=== PATIENT | female | born 1960 | race Caucasian/White ===

== ENCOUNTER 2024-09-05 15:41 | Emergency (ER) | payer BC, SELFPAY ==
--- NOTE | ~2024-09-05 | XR_ITS ---
HISTORY: LT foot pain/swelling/tenderness after a fall 2x weeks ago COMPARISON: None TECHNIQUE: 3 views of the left foot were performed FINDINGS: No acute fracture or dislocation is appreciated. Significant degenerative disease is noted. The base of the fifth metatarsal is intact. Postoperative change is suspected at the base of the first metatarsal. Small calcaneal spur is noted. No significant soft tissue swelling is present. IMPRESSION: Significant degenerative disease, without acute fracture. Reviewed, dictated and finalized at location A.
--- NOTE | ~2024-09-05 | XR_ITS ---
EXAM: XR tibia fibula LT 2V, XR ankle LT min 3V DATE: 09/05/2024 16:28 (accession [id number]), 09/05/2024 16:29 (accession [id number]) HISTORY: LT lower leg pain/swelling/redness 2 weeks after fall . COMPARISON: None available. FINDINGS: Osteopenia. Severe degenerative change in the knee. Moderate degenerative change in the mi dfoot and ankle. No fracture or dislocation. No lytic or blastic lesion. Pes planus. Achilles and sofia ntar enthesopathy. IMPRESSION: No acute osseous finding in the left tibia/fibula or left ankle. Reviewed, dictated and finalized at location K. IMPRESSION: No acute osseous finding in the left tibia/fibula or left ankle.
--- OUTSIDE RECORDS SUMMARY | 2024-09-05 15:48 | XMS_ITS | Data Portability ---
Author Organization OTILIO [facility] - LEONOR [facility] Address [address] [place] [address] Care Team Providers Care Sql Developer Name Role Phone OSMAN CUMMINS Referring Provider PEACE SCHMIDT Primary Care Provider Assessment Encounter Date Assessment Date Assessment LastModified by Organization Details LastModified Time 12/01/2019 12/01/2019 ASSESSMENT: 1. A 59-year-old female with chronic shortness of breath with possibly class II to class III diastolic heart failure. 2. Mitral regurgitation. Appears to be minimal. 3. Morbid obesity. 4. Kyphoscoliosis. PLAN/RECOMMENDATI ONS: I discussed the test results with the patient. Due to valve reasonably well seen, I do not think WYATT would add much to the evaluation. Based on the 2-D echocardiogram, I do not recommend any further intervention for mitral valve. We will probably follow with an echocardiogram in a year, or if her symptoms significantly worsen, we may obtain a WYATT to better assess the mitral valve. Most of her symptoms are probably related to morbid obesity and kyphoscoliosis. She is interested in losing weight, but due to her joint pains and chest pain, apparently, she has not been able to exercise much. After a lengthy discussion about the problems, we agreed that no WYATT is necessary at this point and she will go back to seeing Dr. Cummins, and we will see her back if there is significant worsening of symptoms after WYATT. I spent about 35 minutes face to face out of nearly 50 minutes of consultation time. [email or web address] Not available 12/01/2019 19:15:28 01/11/2020 01/11/2020 Echocardiogram 11/16/2019 from [facility]: LV cavity size is normal, wall thickness normal, systolic function normal with ejection fraction 60%. Diastolic function parameters are normal. LV size and systolic function normal, systolic pressure mildly increased. RVSP 46 mmHg. Right and left atria normal size. CXR PA and lateral 12/13/2019 from [place]: Severe S-shaped scoliosis of the thoracolumbar spine. Cardiac silhouette similar. Bilateral basilar atelectasis. No focal airspace opacity. No pleural effusion. Overall no acute findings seen. (I personally reviewed this image on PACS.) PFTs performed in office 01/11/2020: Spirometry shows no obstruction based on FEV1/FVC ratio. FEV1 is 1.63 L or 76% predicted and FVC is 74%. TLC shows moderate restriction at 60%, RV is 32%, DLCO 80%. [email or web address] Not available 01/11/2020 10:35:11 Plan of Treatment Reminders Order Date Submit Date Provider Last Modified By Organization Details Last Modified Time Details Appointments None recorded. Lab None recorded. Referral None recorded. Procedures trans-thor acic echocardio gram (TTE) (PROC) 2020 021 [email or web address] [facility], [address], [facility] [address], [place], [address], 1 12:21:51 Surgeries None recorded. Imaging electrocar diogram 2020 021 [facility] In-Office Orders (For Internal Use Only), [address] , [place], [address], 12:07:31 Medication Orders None recorded. Patient TargetsNo targets recorded. Patient Instructions Encounter Date Encounter Id Patient Instructions Last Modified By Organization Details Last Modified Time 12/01/2019 [id number] When You Want to Lose Weight: Care Instructions [email or web address] Not available 12/02/2019 06:10:20 heart valve disease: care instructions cramaiah Not available 12/02/2019 06:10:20 mitral valve regurgitation: care instructions [email or web address] Not available 12/02/2019 06:10:20 Reason for Referral None Reported. Results Created Date Observation Date Name Description Value Unit Range Abnormal Flag Note LastModifiedBy Organization Detail LastModifiedTime 11/17/19 20 11/16/2019 brook YARBROUGH ardio gram No observ ation record ed. savannah [facility] In-Office Orders (For Internal Use Only) [address], [place], [address], 11/17/2019 09:34:08 12/13/19 20 12/13/2019 XR, chest , 2 view PROCED URE: PA AND LATERA L CHEST TECHNI QUE: PA and latera l chest radiog raphs were obtain ed. CPT 34475 HISTOR Y: . R06.09 Other forms of dyspne a COMPAR ISONS: None. FINDIN GS: Severe S-shap ed scolio sis of the thorac olumba r spine. Cardio medias tinal silhou ette is simila r. Bibasi lar atelec tasis. No focal airspa ce opacit y. No pleura l effusi on or pneumo thorax . IMPRES LORE: No acute cardio pulmon miguel findin gs. ws:PSM [id number] Electr onical ly Signed By Steve Weber on 2019-03 013 17:00 CTZ Referr ing emanuel ers may call my direct line [phone] [email or web address] [facility] [place] [address], [place], [address], 12/14/2019 12:03:46 01/11/20 20 01/11/2020 pulmo nary funct ion test* No observ ation record ed. BARCODE Not Available 2019 17:14:52 04/24/19 21 04/24/2020 elect jhonny connell am No observ ation record ed. savannah Fede In-Office Orders (For Internal Use Only) [address], [place], [address], 04/24/2020 13:09:38 12/11/19 21 12/10/2020 brook YARBROUGHdio gram No observ ation record ed. [facility]) [address] [facility], [place], [address], 12/10/2020 15:35:32 Result Notes Documentation Provider Name and Address Organization Details Recorded Time Xr, Chest, 2 View : PROCEDURE: PA AND LATERAL CHEST TECHNIQUE: PA and lateral chest radiographs were obtained. CPT 35904 HISTORY: . R06.09 Other forms of dyspnea COMPARISONS: None. FINDINGS: Severe S-shaped scoliosis of the thoracolumbar spine. Cardiomediastinal silhouette is similar. Bibasilar atelectasis. No focal airspace opacity. No pleural effusion or pneumothorax. IMPRESSION: No acute cardiopulmonary findings. [id number] Electronically Signed By Steve Weber on 2019-12-13 17:00 CTZ Referring providers may call my direct line Fay Holbrook kasey, [place] [facility] 12/14/2019 12:03:46 Problems Name Problem SNOMED Code Status Onset Date Resolution Date Notes Provider Name and Address Organization Details Recorded Time Scoliosis deformity of spine 865101909 Active 2019 Elsi Pierson null, [place] [facility] [place] 0 14:50:14 Arthritis 8528423 Active 2019 Elsi Pierson null, [place] [facility] [place] 0 14:50:20 Dyspnea on exertion 44980341 Active 2019 Carlos Hartley MD [address] [place] [address], [place], [address], [place] [facility] 0 10:12:31 Obesity 408082128 Active 2019 Carlos Hartley MD [address] [place] [address], [place], [address], [place] [facility] 0 10:13:11 Pulmonary hypertension 36122112 Active 2019 Carlos Hartley MD [address] [place] [address], [place], [address], [place] [facility] 0 10:17:28 Gastroesophage al reflux disease without esophagitis 240185429 Active 2019 Carlos Hartley MD [address] [place] [address], [place], [address], [place] [facility] 0 10:21:45 Problem Notes None recorded. Procedures Surgical History Date Name Laterality Status Provider Name and Address Organization Details Recorded Time 01/11/20 20 PFT completed Luna Holt [facility] 01/11/2020 10:04:03 12/01/19 20 Blank completed Karo Lopez [facility] 12/01/2019 19:14:52 06/01/19 10 Gallbladder Surgery completed Not Available [facility] 03/03/2019 14:19:10 07/31/18 85 Section completed Not Available [facility] 03/03/2019 14:19:10 excision of bunion completed Torsten Jay [facility] 03/03/2019 14:42:13 ultrasonography guided transcervical radiofrequency ablation of uterine fibroid completed Torstendorothy Thompson [facility] 03/03/2019 14:42:40 Imaging Results None recorded. Procedure Notes None recorded. Medical Equipment None Reported. Allergies Allergen ID Allergen Name Allergen Category Reaction Reaction Severity Criticality Documentation Date Start Date Code Code System Note Provider Name and Address Organization Details Recorded Time 374543 tetracycl ine medicatio n Not available Not available Not available 03/03/2019 29994 RxNorm Torsten Jay null, [facility] 0 14:34:50 064176 doxycycli ne Not available Not available Not available Not available 03/03/2019 3640 RxNorm Torsten Jay null, [facility] 0 14:34:56 579684 Dilaudid medicatio n Not available Not available Not available 03/03/2019 69518 3 RxNorm Torsten Jay null, [facility] 0 14:35:27 197318 tramadol medicatio n Not available Not available Not available 03/03/2019 19786 RxNorm Torsten Jay null, [facility] 0 14:35:45 Medications Name Sig Start Date Stop Date Status Note LastModified by Organization Details LastModified Time celecoxib 200 mg capsule TAKE ONE CAPSULE BY MOUTH TWICE A DAY WITH FOOD active Not Available Not Available No t Available cyclobenza rex 10 mg tablet TAKE ONE TABLET BY MOUTH AT BEDTIME NEEDED active Not Available Not Available No t Available silver sulfadiazi ne 1 % topical cream APPLY TO GROIN FOLDS TWO TIMES A DAY NEEDED active Not Available Not Available No t Available promethazi ne-DM 6.25 mg-15 mg/5 mL oral syrup TAKE 5 ML BY MOUTH EVERY SIX HOURS NEEDED FOR COUGH FOR UP TO 5 DAYS 04/24 completed Not Available Not Available Not Available prednisone 10 mg tablet 01/10 completed Not Available Not Available Not Available azithromyc in 250 mg tablet 01/10 completed Not Available Not Available Not Available fluconazol e 150 mg tablet TAKE ONE TABLET BY MOUTH ONE TIME DAILY FOR 10 DAYS 12/10 completed Not Available Not Available Not Available hydrocodon e 10 mg-acetami nophen 325 mg tablet TAKE ONE TABLET BY MOUTH EVERY 6 HOURS NEEDED FOR 3 DAYS active Not Available Not Available No t Available butalbital -acetamino phen-caffe ine 50 mg-325 mg-40 mg tablet TAKE ONE TABLET BY MOUTH EVERY 6 HOURS NEEDED FOR HEADACHE active Not Available Not Available No t Available Celebrex 100 mg capsule Take 1 capsule every day by oral route. 11/01 completed 1-2 tab as needed Not Available Not Available Not Available lorazepam 0.5 mg tablet TAKE ONE TABLET BY MOUTH TWICE A DAY NEEDED FOR ANXIETY active Not Available Not Available No t Available benzonatat e 100 mg capsule 01/10 completed Not Available Not Available Not Available cephalexin 500 mg capsule TAKE ONE CAPSULE BY MOUTH EVERY 6 HOURS FOR 10 DAYS 12/10 completed Not Available Not Available Not Available montelukas t 10 mg tablet Take 1 tablet every day by oral route as needed. active Not Available Not Available No t Available furosemide 20 mg tablet TAKE ONE TABLET BY MOUTH ONE TIME DAILY NEEDED active Not Available Not Available No t Available gabapentin 100 mg capsule 01/10 completed Not Available Not Available Not Available methylpred nisolone 4 mg tablets in a dose pack FOLLOW DIRECTIO NS ON PACKAGE 12/10 completed Not Available Not Available Not Available [place] 5 mg-325 mg tablet Take 1 tablet every 6 hours by oral route. 12/10 completed Not Available Not Available Not Available cefdinir 300 mg capsule 01/10 completed Not Available Not Available Not Available amoxicilli n 875 mg-potassi um clavulanat e 125 mg tablet TAKE ONE TABLET BY MOUTH EVERY 12 HOURS FOR 10 DAYS 12/10 completed Not Available Not Available Not Available escitalopr am 10 mg tablet TAKE ONE TABLET BY MOUTH ONE TIME DAILY 04/24 completed Not Available Not Available Not Available bupropion HCl XL 150 mg 24 hr tablet, extended release TAKE ONE TABLET BY MOUTH EVERY MORNING 01/10 completed Not Available Not Available Not Available montelukas t 11/01 completed Not Available Not Available Not Available Tylenol 01/10 completed Not Available Not Available Not Available Tessalon Perles 11/01 completed Not Available Not Available Not Available Contrave 8 mg-90 mg tablet,ext ended release TAKE TWO TABLETS BY MOUTH TWICE A DAY 12/10 completed Not Available Not Available Not Available albuterol sulfate 90 mcg/actuat ion breath activated powder inhaler Inhale 2 puffs every 4 hours by inhalati on route. 12/10 completed Not Available Not Available Not Available butalbital 25 mg-acetami nophen 325 mg tablet Take 2 tablets every 4 hours by oral route. 01/10 completed Not Available Not Available Not Available Flucelvax Quad (PF) 60 mcg (15 mcg x 4)/0.5 mL IM syringe INJECT 0.5ML INTRAMUS CULARLY ONCE 01/10 completed Not Available Not Available Not Available Vitals Date Recorded Body height Body mass index (BMI) Body weight Heart rate Systolic And Diastolic Provider Name and Address Organization Details Last Updated DateTime 04/24/2020 152.4 cm 47.1 kg/m2 179414.7 6 g 68 /min 122/70 mm[Hg] Meghann Georges [facility] 04/24/2020 11:38:19 Date Recorded Body height Body mass index (BMI) Body weight Heart rate Systolic And Diastolic Provider Name and Address Organization Details Last Updated DateTime 11/16/2019 149.86 cm 46.9 kg/m2 961465.4 3 g 70 /min 140/80 mm[Hg] Meghann Georges [facility] 11/16/2019 15:49:00 Date Recorded Heart rate Body weight Systolic And Diastolic Provider Name and Address Organization Details Last Updated DateTime 12/01/2019 68 /min 570798.84 g 125/81 mm[Hg] Antonia Fernando [facility] 12/01/2019 14:35:57 Date Recorded Body height Body mass index (BMI) Provider Name and Address Organization Details Last Updated DateTime 12/01/2019 152.4 cm 45.1 kg/m2 Karo Lopez [facility] 12/01/2019 18:43:51 Date Recorded Body height Body mass index (BMI) Body weight Heart rate Systolic And Diastolic Provider Name and Address Organization Details Last Updated DateTime 12/10/2020 152.4 cm 46.3 kg/m2 789801.7 5 g 72 /min 122/78 mm[Hg] Astrid Kelly [facility] 12/10/2020 11:50:33 Date Recorded Body height Body mass index (BMI) Body weight Heart rate Oxygen saturation Oxygen saturation in Arterial blood by Pulse oximetry Systolic And Diastolic Provider Name and Address Organization Details Last Updated DateTime 0 152.4 cm 44.7 kg/m2 813487. 65 g 78 /min 98 % 98 % 126/76 mm[Hg] Luna Jonathon [facility] 0 10:03:52 Social History Question Answer Notes LastModified by Organizat ion Details LastModified Time Tobacco Smoking Status Former Smoker Not Available Phrkyung - Zoey 03/03/2019 14:19:10 Do You Have An Advance Directive? No [email or web address] Information not available 03/03/2019 What Is Your Level Of Caffeine Consumption? Moderate 1-2 Sodas Daily [email or web address] Information not available 03/03/2019 What Type Of Diet Are You Following? REGULAR Emphasis On Vegetables Information not available 03/03/2019 Which Illicit Or Recreational Drugs Have You Used? None [email or web address] Information not available 03/03/2019 When Did You Quit Smoking? 6-10yearssinc elastcigarett e 2010 Information not available 01/11/2020 Live Alone Or With Others? Alone [email or web address] Information not available 03/03/2019 Tobacco Status Former User Informati on not available 01/11/2020 Forms Of Tobacco Cigarettes Information not available 01/11/2020 Have You Had A Fever And/or Symptoms Of A Lower Respiratory Illness (cough, Difficulty Breathing, Etc)? No [email or web address] Information not available 11/02/2019 Marital Status Single [email or web address] Informatio n not available 03/03/2019 How Many Children Do You Have? 2 [email or web address] Information not available 03/03/2019 Seat Belts Used Routinely Yes [email or web address] Information not available 03/03/2019 Do You Have Smoke And Carbon Monoxide Detectors In Your Home? Yes [email or web address] Information not available 03/03/2019 Are You Passively Exposed To Smoke? Yes [email or web address] Information not available 03/03/2019 How Much Tobacco Do You Smoke? 1 PPW [email or web address] Information not available 03/03/2019 General Stress Level High [email or web address] Information not available 03/03/2019 Sex: Unknown Functional Status Question Answer Note LastModified by [employer] ion Details LastModified Time What is your level of alcohol consumption? Occasional [email or web address] Information not available 03/03/2019 What is your exercise level? Occasional [email or web address] Information not available 03/03/2019 Mental Status None recorded. Family History Relationship Description Onset Age of this Age Resolved Age Notes LastModified by Organization Details LastModified Time Maternal Grandmother Heart disease [email or web address] Not available 2019 14:19:10 Maternal Grandmother Family history of malignant neoplasm [email or web address] Not available 2019 14:19:10 Mother Heart disease [email or web address] Not available 2019 14:19:10 Brother Family history of malignant neoplasm [email or web address] Not available 2019 14:19:10 Maternal Aunt Fibrosis of lung Not available 2019 09:22:04 Notes:No history of prematur e coronary artery disease. Medical History Condition Response hypothyroidism N cancer N sleep apnea N back problems Y asthma N COPD N depression Y high blood pressure N obesity Y heart murmur Y acid reflux/GERD Y anxiety disorder Y blood clots N diabetes mellitus N high cholesterol N heart problems Y Gynecological HistoryNo gynecological history recorded. Obstetrics History GPAL:G 0 P 0 0 0 0 Past Encounters Encounter ID Performer Location Encounter Start Date Encounter Closed Date Diagnosis/Indication Diagnosis SNOMED-CT Code Diagnosis ICD10 Code Diagnosis Note [id number] Osman Cummins Jr, MD [facility] [address] [facility] [place] [address] 03/03/2019 14:18:34 03/03/2019 15:05:55 Precordial pain 96157408 R07.2 Nonexertio nal. Occurred after a meal on Thursday. No exertional chest pain since. Resting EKG is normal. His factor profile is essentiall y benign. Will get CT coronary calcium score to assist with prognosis. Further recommenda tions will depend upon those findings Obesity 731012944 E66.9 Patient is going to attend a seminar to assist with weight loss instructio n Scoliosis deformity of spine 898219173 M41.9 [id number] Osman Cummins Jr, MD [place] [id number] [facility] [address] [place] [address] 11/02/2019 14:35:58 11/02/2019 15:31:41 Scoliosis deformity of spine 602117216 M41.9 Arthritis 9584968 M19.90 Edema of l ower extremity 027988030 R60.0 This does not appear to be too severe but will prescribe Lasix 20 mg daily for a couple of days and monitor response. Obesity 906302669 E66.9 Patient is going to attend a seminar to assist with weight loss instructio n Systolic murmur 83737030 R01.1 The patient has a soft systolic heart murmur and has increasing dyspnea with lower extremity edema. Echo Doppler [id number] Osman Cummins Jr, MD [facility] [address] [place] [address] 11/16/2019 15:42:21 11/16/2019 16:28:38 Arthritis 4718527 M19.90 Scoliosis deformity of spine 123738313 M41.9 Reportedly severe. Patient can only sleep on her right side due to discomfort in other positions. Patient is also noted increasing dyspnea of late Tricuspid valve regurgitation 671552264 I07.1 Moderate tricuspid regurgitat ion Mitral day ve regurgitation 95245198 I34.0 Moderate in appearance . Multiple jets. PA pressures were mildly elevated. Patient is having increasing dyspnea and is hard to know how much of any of this might be attributab le to the restrictiv e lung disease to her to her scoliosis. Since the patient also has tricuspid regurgitat ion I will refer her to the [facility] for early follow-up Pulmonary hypertension 98964880 I27.20 Echo Doppler suggests PA pressure of 47 mmHg. [id number] Chino Pathak MD [facility] [address] [place] [address] 12/01/2019 10:14:23 12/02/2019 09:04:26 Chronic diastolic heart failure 946083271 I50.32 [place] [facility] [employer] Classification - Class II 319728092 I50.9 Dyspnea on exertion 6084 5006 R06.09 Mitral day ve regurgitation 81854487 I34.0 Morbid obesity 338691204 E66.01 Scoliosis deformity of spine 391558586 M41.9 [id number] Carlos Hartley MD [facility] [address] [place] [address] 01/11/2020 09:09:21 01/11/2020 11:12:42 Scoliosis deformity of spine 953145944 M41.9 This is the source of her extrapulmo nary restrictiv e defect. There is no evidence of diffuse interstiti al lung disease. Obesity 637739185 E66.9 BMI 44 consistent with morbid obesity. Likely a major contributi ng factor to her dyspnea. Dyspnea on exertion 6084 5006 R06.09 This is most likely related to a combinatio n of restrictiv e lung disease from her severe scoliosis, significan t obesity with deconditio rory, and possibly cardiac abnormalit ies including mitral regurgitat ion and suspected diastolic dysfunctio n. PFT showed no obstructio n and no impairment in gas exchange, therefore COPD is unlikely. Pulmonary hypertension 46133944 I27.20 Based on echo as above. Likely d/t morbid obesity and RLD from scoliosis. Gastroesop hageal reflux disease without esophagitis 109074282 K21.9 Likely source of overnight cough. Recom OTC PPI. [id number] Osman Cummins Jr, MD [facility] [address] [place] [address] 04/24/2020 11:16:07 04/24/2020 12:20:40 Dyspnea on exertion 87128275 R06.09 Gastroesop hageal reflux disease without esophagitis 076726774 K21.9 Pulmonary hypertension 55905994 I27.20 Echo Doppler suggests PA pressure of 47 mmHg. Scoliosis deformity of spine 983721226 M41.9 Reportedly severe. Patient can only sleep on her right side due to discomfort in other positions. Patient is also noted increasing dyspnea of late Tricuspid valve regurgitation 487461047 I07.1 Moderate tricuspid regurgitat ion. No orthopnea or PND. Will arrange for echo Doppler before next visit in 1 year Morbid obesity 467451323 E66.01 Restrictiv e lung disease 68301117 J98.4 Pulmonary function studies confirm restrictiv e lung disease of at least moderate severity. The patient is compromise d in terms of her functional capacity. 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 [id number] Osman Cummins Jr, MD [facility] [address] [facility] [address] [place] [address] 12/10/2020 11:26:26 12/10/2020 12:50:34 Pulmonary hypertension 70680293 I27.20 Echo Doppler today reveals vigorous LV systolic function. RV systolic function is normal. There is no valve pathology. Obesity 879445316 E66.9 Encouraged weight loss once again if she has failed to lose any weight. Due to her orthopedic issues she is not very active Scoliosis deformity of spine 011206279 M41.9 Reportedly severe. Patient can only sleep on her right side due to discomfort in other positions. Patient is also noted increasing dyspnea of late Migraine 35703966 G43.90 9 Chronic problem. Follow with Peace Schmidt and Dr. [facility] Concerns Section Related Observation LastModified by Organization Price moore LastModified Time None Recorded Concern Status LastModified by Organization Details LastModified Time None Recorded Advance Directives Directive N: Payers Insurance Date Sequence Insurance Name Policy Number Policy Street Covered Member ID Street Member ID Guarantor Name 03/18/2020 PAYMENT PLAN Sarah Carpio 04/02/2022 1 [facility] ([facility]) [id number] Sarah Carpio [id number] Sarah Carpio Notes Date Note Type Note Provider Name and Address Organization Details Recorded Time 11/16/2019 text/html Mrs. player edmonds rns the office. This is a lady with some unusual problems which include fairly severe scoliosis as well as arthritis. She states that her scoliosis is limiting and even affects how she is able to sleep at night. When I originally saw her she is having problems with increasing dyspnea with exertion. She also had an audible heart murmur on physical exam. Echo Doppler confirms vigorous LV systolic function with normal LV chamber dimensions. There is what appears to be moderate MR and moderate TR. PA systolic pressures of 47 mmHg. The patient has no orthopnea or PND. She has no history of cardiac arrhythmia. I am going to refer her to the [facility] for long-term follow-up Osman Cummins Jr, MD [address] [place] [address], [id number] 11/16/2019 16:26:10 12/01/2019 text/html The patient is a 59-year-old female with a longstanding history of exertional shortness of breath, morbid obesity, history of kyphoscoliosis. The patient reports that she continues to gain weight and has started getting more and more short of breath. She went to see Dr. Cummins, who did an echocardiogram on 11/16/2019, along with a clinic visit. She was noted to have some mitral regurgitation; hence, she was sent to us for evaluation and followup of this. The patient reports that she gets short of breath even walking a short distance, which has been going on for many years, but now getting worse. She also has lower extremity swelling, which is improved with Lasix. She denies any orthopnea or paroxysmal nocturnal dyspnea; however, she can only sleep on the right side for a few hours and has to get up due to her severe kyphoscoliosis problems. This has been going on for many years. She also has some chest pain on the left side of the chest that comes and goes, not related to any exertion. She has had a calcium scoring CT scan, done in March of this year, that showed a total score of 0. Echocardiogram, done 11/16/2019, official report saw no mitral regurgitation. No aortic stenosis, normal LV function with ejection fraction of 65%. On personally reviewing the echocardiogram, by Dr. Cummins, apparently, he felt that there is at least mild MR. Chino Pathak MD [address] [place] [address] [address], [place], [address], [facility] 12/02/2019 06:10:24 01/11/2020 text/html DyspneaReported bypatient.Quality:dys pnea Severity:moderate Duration:sensation/ep isode lasts 3 minutes Onset/Timing:daily Context:with activity Alleviating Factors:rest Aggravating Factors:activity Associated Symptoms:no chest pain; no palpitations; no orthopnea; no PND; no fever; no chills; no wheezing; no sputum production; no hemoptysis; no weight gain; no dyspepsia Ms. Carpio was referred for pulmonary consultation on 01/10/2020 for evaluation of dyspnea on exertion. She is followed by cardiology and more recently by cardiac surgery for moderate MR. She also has pulmonary hypertension with PA systolic pressures of 47 mmHg. She also has scoliosis and there is some concern that restrictive lung disease may be contributing to her symptom of dyspnea. Dyspnea has been present for between 6 and 12 months. She also notes occasional wheezing and coughing with clear sputum. She is a former smoker but stopped in 2010. She reports a diagnosis of reflux but takes no medications for this. Reports awakening over night with SOB and coughing. Carlos Hartley MD [address] [place] [address] [address], [place], [address], [facility] 01/11/2020 10:35:44 04/24/2020 text/html Mrs. Devlin pres ents the office today. She has a history of morbid obesity as well as tricuspid regurgitation and mild pulmonary hypertension. She also has significant scoliosis and has had pulmonary function studies done 01/11/2020. This revealed normal DLCO with no obstructive disease but moderate restrictive disease. The patient is significantly compromised in terms of her functional capacity. Walking a short distance causes her to be breathless. She is very concerned about her ability to go back to work due to the distance required to walk to the office etc. She has no orthopnea or PND. She has no palpitations presyncope or syncope.CT calcium score in the past recently has been 0 Osman Cummins Jr, MD [address] [facility] [address], [place], [address], [facility] 04/24/2020 12:07:49 12/10/2020 text/html Mrs. Wooten has h ad a recent echo Doppler done today. This revealed vigorous LV systolic function. EF was in the range of 65%. There is no significant valve pathology.She has a history of obesity as well as anxiety disorder depression, diastolic heart failure, and moderate restrictive lung disease. She also suffers with chronic migraines.He has no symptoms of angina orthopnea or PND Osman Cummins Jr, MD [address] [facility] [address], [place], [address], [facility] 12/10/2020 12:11:58 OBGyn Episode No OBEpisode recorded.
--- OUTSIDE RECORDS SUMMARY | 2024-09-05 15:48 | XMS_ITS ---
Author Organization [facility] Billing Info Address [address] [place] [address] Care Team Providers Care Rehabilitation Services Aide Name Role Phone PEACE LOGAN Primary Care Provider ANDRZEJ King [phone] REASON FOR VISIT screening colonoscopy Problems No Known Problems Encounters Encounter Location Date Provider Diagnosis [id number] [address] [facility] [place] [address] [place] [address] [place] [address] 04/27/2024 ANDRZEJ JAMA Plan Of Treatment No Information Progress Notes * Sarah CARPIO MDOB: 9 (63 yo F)Acc No.[id number]:04/27/2024 Patient: Sarah PIERCE :1960 A ge:63 Y S ex:Female Address:[facility] [place] [address] * true * Date: Generated for Printi ng/Faxing/eTransmitting on: 0 09/05/2024 03:48 PM CDT
--- OUTSIDE RECORDS SUMMARY | 2024-09-05 15:48 | XMS_ITS | Encounter Summary ---
Author Organization [facility] Address [address] [place] [address] Care Team Providers Care Workforce Investment Act Career Manager Name Role Phone Fede Cyr MD Primary Care Provider Reason for Referral * Durable Medical Equipment (Routine) - Closed Specialty Diagnoses / Procedures Referred By Contac t Referred To Contact Diagnoses Primary osteoarthritis of left knee Primary osteoarthritis of right knee Procedures Walker standard Dima Martin DO [address] [place] [address] Phone: tel: fax: Referral ID Status Reason Start Date Expiration Date V isits Requested Visits Authorized [id number] Closed Required by Insurance 04/06/2018 05/11/2019 1 1 [employer] Encounter Details Date Type Department Care Team (Late st Contact Info) Description 04/06/2018 Orders Only [facility] [place] [address] [place] [address] Connie Abebe RN Primary osteoarthritis of left knee (Primary Dx); Primary osteoarthritis of right knee Social History Tobacco Use Types Packs/Day Years Used Date Smoking Tobacco: Former Cigarettes Q uit: 2010 Smokeless Tobacco: Never Comments Unknown Sex and Gender Information Value Date Recorded Sex Assigned at Not on file Legal Sex Female 11:01 PM CDT Gender Identity Not on file Sexual Orientation Not on file documented as of this encounter Plan of Treatment Upcoming Encounters Date Type Department Care Team (Late st Contact Info) Description 09/09/2024 2:20 PM CDT Office Visit [facility] [place] [address] [place] [address] Wes Rea MD [address] [place] [address] documented as of this encounter Visit Diagnoses Diagnosis Primary osteoarthritis of left knee- Primary Primary osteoarthritis of right knee documented in this encounter Care Teams Workforce Investment Act Career Manager Relationship Specialty Start Date End Date Fede Cyr MD PCP - General Family Medicine 09/10/22 documented as of this encounter
--- OUTSIDE RECORDS SUMMARY | 2024-09-05 15:48 | XMS_ITS | Patient Health Record ---
Author Organization [facility] [place], [facility] Address [address] [place] [address] [place] [address] Care Team Providers Care Vice President Name Role Phone Referred by, Google Search Unavailable Unava ilable Allergies Allergen (clinical drug ingredient) Drug/Non Drug Allergy documented on EMR Reaction Allergy Type Onset Date Status sulfamethoxazole / trimethoprim Bactrim Unknown Drug Allergy Active hydromorphone Dilaudid Unknown Drug Allergy Act tanya doxycycline Doxycycline Unknown Drug Allergy Act tanya tetracycline Tetracycline Unknown Drug Allergy A ctive Product containing tetracycline structure (product) Tetracyclines & Related Unknown Drug Allergy Active Reason For Referral No Information Plan Of Treatment No Information Insurance Providers Payer Name Payer Address Payer Phone Subscriber Number Group Number Insured Name Patient Relationship to Insured Coverage Start Date Coverage End Date [place] 1 [facility] 0002 [employer] CLAIM[employer] DEPT [place], [place] [id number] [phone] [id number] PHILLIP GRIFFIN Self - patient is the insured
--- OUTSIDE RECORDS SUMMARY | 2024-09-05 15:49 | XMS_ITS ---
Author Organization [facility] Address [address] [place] [address] Care Team Providers Care Edger Operator Name Role Phone Wes Schmidt Primary Care Provider [phone] [place] [phone] REASON FOR VISIT f/u Encounters Encounter Location Date Provider Diagnosis [address] [place] [address] 04/08/2024 Wes Schmidt Plan Of Treatment No Information Progress Notes * Beverly CARPIOaDOB:1960 (63 yo F)Acc No.[id number]:04/08/2024 Progress Notes Patient: Sarah PIERCE Appointment Provider: GENI Montes :1960 A ge:63 Y S ex:Female Date:04/08/2024 Address:[address] [place], [place] [address] [phone] Subjective: * Chief Complaints: * 1 . F/u. * Medical History: Objective: * Vitals: Assessment: Plan: * Treatment: * * Electronic signature of GENI Andrea on 09/05/2024 at 03:48 PM CDT Sign off status: Pending * Appointment Provider: GENI Montes Date: 04/08/2024 Generated for Printing/Faxing/eTransmitting on: 09/05/2024 03:48 PM CDT
--- OUTSIDE RECORDS SUMMARY | 2024-09-05 15:49 | XMS_ITS | Encounter Summary ---
Author Organization [facility] Address [address] [place] [address] [facility] [place] [address] Care Team Providers Care Aircraft Engine Dismantler Name Role Phone Fede Cyr MD Primary Care Provider Reason for Visit * Reason Onset Date Comments Med Refill 03/09/2019 Encounter Details Date Type Department Care Team (Late st Contact Info) Description 03/09/2019 Refill [facility] [address] [place] [address] Dima Martin DO [address] [place] [address] Med Refill Social History Tobacco Use Types Packs/Day Years Used Date Smoking Tobacco: Former Cigarettes Q uit: 2010 Smokeless Tobacco: Never Alcohol Use Standard Drinks/Week Comments No 0 (1 standard drink = 0.6 oz pur e alcohol) Comments No Sex and Gender Information Value Date Recorded Sex Assigned at Not on file Legal Sex Female 11:01 PM CDT Gender Identity Not on file Sexual Orientation Not on file documented as of this encounter Plan of Treatment Upcoming Encounters Date Type Department Care Team (Late st Contact Info) Description 09/09/2024 2:20 PM CDT Office Visit [facility] [address] [place] [address] Wes Rea MD [address] [place] [address] documented as of this encounter Visit Diagnoses Not on filedocumented in this encounter Care Teams Aircraft Engine Dismantler Relationship Specialty Start Date End Date Fede Cyr MD PCP - General Family Medicine 09/10/22 documented as of this encounter
--- OUTSIDE RECORDS SUMMARY | 2024-09-05 15:49 | XMS_ITS ---
Author Organization [facility] [place], [facility] Address [address] [place] [address] [place] [address] Care Team Providers Care Implementation Analyst Name Role Phone Referred by, Google Search Unavailable Unava ilable zzRetief, IgnisClifford Unavailable [phone] Allergies Allergen (clinical drug ingredient) Drug/Non Drug Allergy documented on EMR Reaction Allergy Type Onset Date Status sulfamethoxazole / trimethoprim Bactrim Unknown Drug Allergy Active hydromorphone Dilaudid Unknown Drug Allergy Act tanya doxycycline Doxycycline Unknown Drug Allergy Act tanya tetracycline Tetracycline Unknown Drug Allergy A ctive Product containing tetracycline structure (product) Tetracyclines & Related Unknown Drug Allergy Active REASON FOR VISIT RT FT BUNION/DISCUSS POSSIBLE SX/2ND OPINION Encounters Encounter Location Date Provider Diagnosis [facility] [place], [facility] [address] [place] [place], [place] [id number] 06/17/2023 IgnisClifford zzRetief Plan Of Treatment No Information Progress Notes * JATINLEW JOSÉYAIRB:1960 (63 yo F)Acc No.[id number]:06/17/2023 Progress Notes Patient: PHILLIP PIERCE Provider: Jeet Lizama DPM :1960 A ge:62 Y S ex:Female Date:06/17/2023 Address:[facility] [address] [place], [place] Subjective: * Chief Complaints: * 1 . RT FT BUNION/DISCUSS POSSIBLE SX/2ND OPINION. * Active Problem List ?Problem List has not been verified* Medical History: * Allergies: B actrim, Dilaudid, Doxycycline, Tetracycline, Tetracyclines & Related. Objective: * Vitals: Assessment: Plan: * Treatment: * Images: * Electronic signature of Katie Nevarez DPM on 09/05/2024 at 03:48 PM CDT Sign off status: Pending * Provider: Jeet Lizama DPM Date: 0 06/17/2023 Generated for Yovany webster/Adriana/Joey on: 0 09/05/2024 03:48 PM CDT
--- OUTSIDE RECORDS SUMMARY | 2024-09-05 15:49 | XMS_ITS | Data Portability ---
Author Organization [facility] Address [address] [place] [address] Care Team Providers Care Glazing Superintendent Name Role Phone RAJENDRA DICKINSON Account Associate Assessment No assessment recorded. Plan of Treatment Reminders Order Date Submit Date Provider Last Modified By Organization Details Last Modified Time Details Appointments None recorded. Lab None recorded. Referral None recorded. Procedures None recorded. Surgeries None recorded. Imaging MRI, foot, w/o contrast 2018 019 kristen Not available 9 23:23:57 Medication Orders None recorded. Patient TargetsNo targets recorded. Patient Instructions Encounter Date Encounter Id Patient Instructions Last Modified By Organization Details Last Modified Time 10/27/2018 [id number] back care and preventing injuries: care instructions kristen Not available 11/01/2018 23:23:57 getting back to normal after low back pain: care instructions kristen Not available 11/01/2018 23:23:57 learning about relief for back pain kristen Not available 11/01/2018 23:23:57 We discussed their options of conservative therapy versus MRI. Patient at this time wishes to proceed with an MRI. We are going to set them up for an MRI to evaluate this further. I believe this will likely show no significant injury. They will follow up after their MRI. kristen Not available 10/28/2018 06:55:33 11/03/2018 [id number] We will treat he r with activity modification. She will work on range of motion. She will increase her activities. She will followup in 4 weeks at which time she will likely be at maximal medical improvement. kristen Not available 11/03/2018 17:17:14 11/16/2018 [id number] We discussed thi s again at length with her. There is no evidence of significant acute injury beyond the contusion to her foot. There is no evidence that she needs further intervention or surgical or otherwise. We'll continue to treat this with activity modification as before. She requested a second opinion which I have no problem with. We discussed the fact that her knee pain would not be work comp related as it is her pre-existing arthritic changes. She will followup as scheduled. kristen Not available 11/16/2018 09:54:21 01/18/2019 [id number] Her second opinion stated that he felt she had CRPS. Her foot has been essentially unchanged since I first saw her on October 27, which was only 12 days after her injury. She had already requested a second acute care evaluation of her foot prior to this. She was convinced there was something more wrong with her foot on her first visit. As such, it is far more likely than not that if she does in fact have CRPS, it is not related to her injury of only 12 days prior and would be far more likely related to extensive foot surgery previously. I find no evidence at this time that she has CRPS. Her foot shows no signs of it. Her MRI shows no signs of it. Her subjective complaints of pain have always been far more significant than her objective findings. She had a contusion of her foot from something dropping on her foot. This was confirmed by her MRI. This patient has reached maximal medical improvement. They are released to full work without restriction. Their permanent impairment, based on the AMA Guides to the Evaluation of Permanent Impairment Sixth Edition, Table 16-2 , would be 1% to the lower extremity which translates to 1% whole person. They will follow up with us as needed. kristen Not available 01/19/2019 17:30:36 Reason for Referral None Reported. Results Created Date Observation Date Name Description Value Unit Range Abnormal Flag Note LastModifiedBy Organization Detail LastModifiedTime 11/01/1910/29/2018 MRI, foot, w/o contr ast No observ ation record ed. [email or web address] [facility] [place] [address] [place], [address], 03/21/2019 17:51:18 11/03/1910/29/2018 MRI, foot, w/o contr ast No observ ation record ed. [email or web address] [facility] [place] [address], [place], [address], 03/21/2019 17:51:18 Result Notes None recorded. Problems Name Problem SNOMED Code Status Onset Date Resolution Date Notes Provider Name and Address Organization Details Recorded Time Migraine 54887604 Active 019 Fay parks [facility] 10/27/2018 15:42:34 Notes:big toe pain on left Problem Notes None recorded. Procedures Surgical History Date Name Laterality Status Provider Name and Address Organization Details Recorded Time delivery completed Fay Yao [facility] 10/27/2018 15:45:21 Cholecystectomy completed Fay Miller [facility] 10/27/2018 15:45:29 excision of bunion completed Fay Miller [facility] 10/27/2018 15:45:37 Imaging Results None recorded. Procedure Notes None recorded. Medical Equipment None Reported. Allergies Allergen ID Allergen Name Allergen Category Reaction Reaction Severity Criticality Documentation Date Start Date Code Code System Note Provider Name and Address Organization Details Recorded Time 866473 Dilaudid medicatio n anaphylax is Not available Not available 10/27/2018 75077 3 [facility] 15:37:33 665662 tetracycl ine medicatio n rash Not available Not available 10/27/2018 11537 RxNorm Fay Miller [facility] 9 15:37:52 056900 doxycycli ne Not available rash Not available Not available 10/27/2018 3640 [facility] 9 15:38:11 474155 Bactrim medicatio n vomiting Not available Not available 10/27/2018 80864 9 [facility] 9 15:38:24 004936 Ultram medicatio n headache Not available Not available 10/27/2018 90931 6 RxNorm Fay SuttonJENNIFER cox - [facility], 9 15:38:41 268110 Toradol medicatio n headache Not available Not available 10/27/2018 40348 RxNorm Fay Miller [facility] [place] - [facility], 9 15:38:59 Medications Name Sig Start Date Stop Date Status Note LastModified by Organization Details LastModified Time promethazin e-DM 6.25 mg-15 mg/5 mL oral syrup TAKE 5 ML BY MOUTH EVERY SIX HOURS NEEDED FOR COUGH FOR UP TO 5 DAYS 01/18 completed Not Available Not Available Not Available venlafaxine ER 37.5 mg capsule,ext ended release 24 hr 10/27 completed Not Available Not Available Not Available clarithromy beth 500 mg tablet 10/27 completed Not Available Not Available Not Available hydrocodone 5 mg-acetamin ophen 325 mg tablet 01/18 completed Not Available Not Available Not Available ondansetron HCl 4 mg tablet 10/27 completed Not Available Not Available Not Available Excedrin Migraine 250 mg-250 mg-65 mg tablet Take by oral route as needed. active Not Available Not Available No t Available butalbital- acetaminoph en-caffeine 50 mg-325 mg-40 mg tablet TAKE ONE TABLET BY MOUTH EVERY 6 HOURS NEEDED active Not Available Not Available No t Available lorazepam 0.5 mg tablet TAKE ONE TABLET BY MOUTH ONE TIME DAILY NEEDED FOR SLEEP active Not Available Not Available No t Available benzonatate 100 mg capsule active Not Available Not Available Not Available bupropion HCl 75 mg tablet 10/27 completed Not Available Not Available Not Available Tylenol 325 mg tablet Take 2 tablets every 6 hours by oral route as needed. active Not Available Not Available No t Available montelukast 10 mg tablet TAKE 1 TABLET BY MOUTH EVERY EVENING FOR 30 DAYS active Not Available Not Available No t Available hydroxyzine HCl 25 mg tablet TAKE ONE TABLET BY MOUTH TWICE A DAY NEEDED 10/27 completed Not Available Not Available Not Available prednisone 5 mg tablets in a dose pack 10/27 completed Not Available Not Available Not Available methylpredn isolone 4 mg tablets in a dose pack active Not Available Not Available Not Available albuterol sulfate HFA 90 mcg/actuati on aerosol inhaler INHALE TWO PUFFS BY MOUTH EVERY 6 HOURS NEEDED 10/27 completed Not Available Not Available Not Available celecoxib 100 mg capsule TAKE ONE CAPSULE BY MOUTH TWICE A DAY active Not Available Not Available No t Available amoxicillin 875 mg-potassiu m clavulanate 125 mg tablet 01/18 completed Not Available Not Available Not Available neomycin-po lymyxin-hyd rocort 3.5 mg-10,000 unit/mL-1 % ear drops,susp 10/27 completed Not Available Not Available Not Available eletriptan 20 mg tablet TAKE ONE TABLET BY MOUTH AT ONSET OF HEADACHE MAY REPEAT ONCE AFTER 2 HOURS MAX 2 DOSES IN 24 HOURS 10/27 completed Not Available Not Available Not Available bupropion HCl XL 150 mg 24 hr tablet, extended release 10/27 completed Not Available Not Available Not Available duloxetine 20 mg capsule,del ayed release TAKE ONE CAPSULE BY MOUTH ONE TIME DAILY 10/27 completed Not Available Not Available Not Available Vitals Date Recorded Body height Body mass index (BMI) Body weight Respiratory rate Provider Name and Address Organization Details Last Updated DateTime 10/27/2018 149.86 cm 48.1 kg/m2 284132.98 g 18 /min Fay Miller [place] - [facility], 10/27/2018 15:37:08 Date Recorded Body height Body mass index (BMI) Body weight Respiratory rate Provider Name and Address Organization Details Last Updated DateTime 11/03/2018 149.86 cm 48.1 kg/m2 297068.98 g 18 /min Belén Aguilar [facility], 11/03/2018 16:56:11 Date Recorded Body height Body mass index (BMI) Body weight Respiratory rate Provider Name and Address Organization Details Last Updated DateTime 11/16/2018 149.86 cm 48.1 kg/m2 096072.98 g 17 /min Belén Aguilar [facility], 11/16/2018 09:23:12 Date Recorded Body height Body mass index (BMI) Body weight Respiratory rate Provider Name and Address Organization Details Last Updated DateTime 01/18/2019 149.86 cm 48.1 kg/m2 723490.98 g 16 /min Yoko Witt [facility], 01/18/2019 16:49:17 Social History Question Answer Notes LastModified by Organizat ion Details LastModified Time Tobacco Smoking Status Former Smoker JENNIFER Kulkarni - [facility], 10/27/2018 15:44:51 Do You Have An Advance Directive? No Info Given 01/18/2019 Information not available 01/18/2019 How Much Tobacco Do You Chew? None Information not available 01/18/2019 What Was The Date Of Your Most Recent Tobacco Screening? 01/18/2019 Information not available 01/18/2019 Sex: Unknown Functional Status Question Answer Note LastModified by Organizat ion Details LastModified Time What is your level of alcohol consumption? Occasional [email or web address] Information not available 10/27/2018 Mental Status None recorded. Family History Relationship Description Onset Age of this Age Resolved Age Notes LastModified by Organization Details LastModified Time Father Heart disease [email or web address] Not available 2018 15:43:13 Mother Heart disease [email or web address] Not available 2018 15:43:13 Maternal Grandmother Osteoporosis [email or web address] Not available 10/27/2018 15:43:28 Maternal Grandmother Scoliosis deformity of spine Not available 2018 15:43:41 Maternal Grandmother Malignant neoplastic disease [email or web address] Not available 2018 15:44:13 Maternal Grandmother Arthritis [email or web address] Not available 15:44:28 Maternal Grandfather Malignant neoplastic disease [email or web address] Not available 2018 15:44:13 Maternal Grandfather Arthritis [email or web address] Not available 15:44:28 Brother Malignant neoplastic disease [email or web address] Not available 2018 15:44:13 Medical History No medical history recorded. Gynecological HistoryNo gynecological history recorded. Obstetrics History GPAL:G 0 P 0 0 0 0 Past Encounters Encounter ID Performer Location Encounter Start Date Encounter Closed Date Diagnosis/Indication Diagnosis SNOMED-CT Code Diagnosis ICD10 Code Diagnosis Note [id number] Sheldon Woo MD [facility] [address] [place] [address] 10/27/2018 15:19:09 10/27/2018 16:42:13 Pain in left foot 5517749412 66324 M79.672 Low back pain 807348814 M54.5 [id number] Sheldon Woo MD [facility] [address] [place] [address] 11/03/2018 16:47:10 11/03/2018 17:15:14 Pain in left foot 2820563994 38170 M79.672 Contusion of left foot 6988923999 2034890 S90.32XA [id number] Sheldon Woo MD [facility] [address] [place] [address] 11/16/2018 09:13:52 11/16/2018 09:48:25 Pain in left foot 8538535183 57734 M79.672 Contusion of left foot 7535648175 2278031 S90.32XA [id number] Sheldon Woo MD [facility] [address] [place] [address] 01/18/2019 16:22:36 01/18/2019 17:35:49 Pain in left foot 8508633070 67909 M79.672 Contusion of left foot 1532109975 8906217 S90.32XA Health Concerns Section Related Observation LastModified by Organization Detai ls LastModified Time None Recorded Concern Status LastModified by Organization Details LastModified Time None Recorded Advance Directives Directive N: Info given 01/18/2019 Payers Insurance Date Sequence Insurance Name Policy Number Policy Street Covered Member ID Street Member ID Guarantor Name 10/27/2018 CLAUDE LIANG [facility] Notes Date Note Type Note Provider Name and Address Organization Details Recorded Time 10/27/2018 text/html This patient injured their left foot on October 15 They were injured at work when a Plexiglas side and fell off a table and landed on her foot. She is unsure how it hit. She was seen and had x-rays that were reported as normal. She then requested to be seen at a different urgent care and was sent to [facility]. They also did x-rays that were reported as normal. She is concerned there something more wrong with her foot. She has a previous history of bunionectomy and is concerned this has injury that. They have noted swelling. They were seen and have had xrays and splinted. They comes here now for evaluation. JENNIFER Murillo - [facility], 10/28/2018 06:55:52 11/03/2018 text/html [facility] She is doing the same. She did have her MRI. Her MRI demonstrates minimal contusion of her first metatarsal. There is no evidence of other significant injury. It also shows postoperative changes from her previous bunion surgery. JENNIFER Murillo - [facility], 11/03/2018 17:17:27 11/16/2018 text/html She comes in ear ly today for her left foot because she thinks her foot is not right. She complains of pain in her foot. She complains of swelling at the end of the day. She complains that she can't put her toes down flat. She also complains that this has aggravated her arthritic knee for which yard he receives injections. JENNIFER Murillo - [facility], 11/16/2018 09:54:43 01/18/2019 text/html This patient returns today for followup of her left foot injury. She recently had a second opinion at the [facility] in [place]. She referred me to that report to answer every question that I asked her. She would not answer questions directly. She refused to allow me to examine her foot. She claimed that I have never touched her foot in previous visits. In the next sentence, she talked about how I hurt her foot when I twisted it examining it. JENNIFER Murillo - [facility], 01/19/2019 17:31:02 OBGyn Episode No OBEpisode recorded.
--- OUTSIDE RECORDS SUMMARY | 2024-09-05 15:49 | XMS_ITS ---
Author Organization [facility] [place] Address [address] [place] [address] Care Team Providers Care Service Rig Operator Name Role Phone MURALI KIMBERLEY Primary Care Provider [phone] zzMitorres, Provider Unavailable Unavailabl e Allergies Allergen (clinical drug ingredient) Drug/Non Drug Allergy documented on EMR Reaction Allergy Type Onset Date Status doxycycline Doxycycline Unknown Drug Allergy Act tanya hydromorphone Dilaudid Unknown Drug Allergy Act tanya tetracycline Tetracycline Unknown Drug Allergy A ctive [facility] Encounter Medications Medication SIG (Take, Route, Frequency, Duration) Notes Start Date End Date Status LORazepam 0.5 MGM 1PO BID PRN *Please review and pick correct strength-formulatio n from Medispan options. If intended option is not shown, discontinue and re-order from Quick Search* Active Phentermine HCl 37.5 MG 1 tab(s) orally once a day for 30 day 05/28/2017 Active Topiramate 50 MG 1 tab(s) orally 2 times a day for 30 day(s) 05/27/2017 Active Encounters Encounter Location Date Provider Diagnosis [facility] [place] [place] [address] [place] [address] 04/17/2024 Provider Nic Other migraine with status migrainosus, intractable G43.811 Assessments Encounter Date Diagnosis (ICD Code) Assessment Notes Treatment Notes Treatment Clinical Notes Section Notes 04/17/2024 Other migraine with status migrainosus, intractable (ICD-10 - G43.811) Plan Of Treatment Medication Medication Name Sig Start Date Stop Date Notes Phentermine HCl 37.5 MG 1 tab(s) orally once a day for 30 day 05/28/2017 Topiramate 50 MG 1 tab(s) orally 2 ti mes a day for 30 day(s) 05/27/2017 Progress Notes * LEW GRIFFINADOB:1960 (63 yo F)Acc No.[id number]:04/17/2024 Patient: PHILLIP PIERCE Provider: Arabella Bowen :1960 A ge:63 Y S ex:Female Date:04/17/2024 Address:[address] [place] [address] [facility] [id number] Pcp:KIMBERLEY CARRION Subjective: * Chief Complaints: * 1 . Multum To Medispan Conversion Encounter. * Medical History: * Medications: T aking LORazepam 0.5 MGM 1PO BID PRN , Notes to Pharmacist: *Please review and pick correct strength-formulation from Medispan options. If intended option is not shown, discontinue and re-order from Quick Search* * Allergies: D ilaudid, Tetracycline, Doxycycline. Objective: Assessment: * Assessment: 1. O ther migraine with status migrainosus, intractable - G43.811 Plan: * Treatment: 2. O thers Start Phentermine HCl Tablet, 37.5 MG, 1 tab(s), orally, once a day, 30 day, 30, Refills 0. ? Forms: * Billing Information: * Visit Code: * Procedure Codes: * Electronic signature of Prov karen hillMigration on 09/05/2024 at 03:49 PM CDT Sign off status: Pending * Provider: Arabella Bowen Date: 0 04/17/2024 Generated for Yovany webster/Adriana/Joey on: 0 09/05/2024 03:49 PM CDT
--- OUTSIDE RECORDS SUMMARY | 2024-09-05 15:49 | XMS_ITS ---
Author Organization [facility] Billing Info Address [address] [place] [address] Care Team Providers Care [place] Nurse Name Role Phone PEACE LOGAN Primary Care Provider ANDRZEJ King [phone] REASON FOR VISIT BAD TIMING FOR PT- - Screening Problems No Known Problems Encounters Encounter Location Date [id number] [address] [place], [place] [id number] 06/16/2024 ANDRZEJ JAMA Plan Of Treatment No Information Progress Notes * Sarah CARPIO MDOB: [birth year] (63 yo F)Acc No.[id number]:06/16/2024 Patient: Arabella ORNOASarah Provider: Gomez Jama MD :1960 A ge:63 Y S ex:Female Date:06/16/2024 C HN#:[id number] Address:[address] [place] [address] [facility] Pcp:PEACE LOGAN Subjective: * Chief Complaints: * 1 . BAD TIMING FOR PT- - Screening. * Medical History: Objective: * Vitals: Assessment: Plan: * Treatment: * * This progress note has not b een verified nor is it considered complete until locked and signed by the provider. Sign off status: Pending * Provider: Gomez Jama MD Date: 06/16/2024 Generated for Printi ng/Fadeepak/eTransmitting on: 09/05/2024 03:49 PM CDT
--- OUTSIDE RECORDS SUMMARY | 2024-09-05 15:49 | XMS_ITS | Patient Health Record ---
Author Organization [facility] Address [address] [facility] [place] [address] Care Team Providers Care Farm Boss Name Role Phone KIMBERLEY CARRION Primary Care Provider zzMigration, Provider Unavailable Unavailabl e Allergies Allergen (clinical drug ingredient) Drug/Non Drug Allergy documented on EMR Reaction Allergy Type Onset Date Status doxycycline Doxycycline Unknown Drug Allergy Act tanya hydromorphone Dilaudid Unknown Drug Allergy Act tanya tetracycline Tetracycline Unknown Drug Allergy A ctive Reason For Referral No Information Medications Medication SIG (Take, Route, Frequency, Duration) [...] a day for 30 day(s) 05/27/2017 Active Social History Tobacco Use: Social History Observation Description Date Details (start date - stop date) Never Smoker NA - NA TOBACCO USE Question Answer Notes Are you a: nonsmoker Smoking Question Answer Notes Are you a: nonsmoker Problems Problem Type SNOMED Code ICD Code Onset Dates Problem Status W/U Status Risk Notes Problem [id number] Obesity, unspecified (E66.9) Active confirmed Encounters Encounter Location Date Provider Diagnosis [facility] [place] [address] [address] [place] [address] 04/17/2024 Provider Nic Other migraine with status migrainosus, intractable G43.811 Assessments Encounter Date Diagnosis (ICD Code) Assessment Notes Treatment Notes Treatment Clinical Notes Section Notes 04/17/2024 Other migraine with status migrainosus, intractable (ICD-10 - G43.811) Plan Of Treatment Pending Test Test Name Order Date EKG (IH) 05/27/2017 Insurance Providers Payer Name Payer Address Payer Phone Subscriber Number Group Number Insured Name Patient Relationship to Insured Coverage Start Date Coverage End Date [place] DO [place] USE [address] [place] [phone] [id number] PHILLIP GRIFFIN Self - patient is the insured 2015 Medical (General) History Medical History History ICD Code Scoliosis M41.9 Arthritis M19.90 Surgical History Surgery Date(Month/Year) BUNIONECTOMY D/C TUBALIGATION LEEP Hospitalization History Reason Date(Month/Year) Pneumonia Surgeries//LISTED ABOVE//
--- OUTSIDE RECORDS SUMMARY | 2024-09-05 15:49 | XMS_ITS | Clinical Summary ---
Author Organization [facility] Address [facility] [address] Care Team Providers Care Extrusion Former Name Role Phone Fede Cyr MD Primary Care Provider Allergies Active Allergy Reactions Criticality Noted Date Comments Hydromorphone Difficulty breathing (wheezing, shortness of breath) High 04/06/2018 Doxycycline Rash High 04/06/2018 Sulfamethoxazole-Trimeth oprim Rash High 04/06/2018 patient states she is not allergic Tetracyclines Rash High 04/06/2018 Tramadol 01/01/2019 Medications LORazepam (ATIVAN) 0.5 mg tablet Take 1 tablet (0.5 mg total) by mouth every 6 hours as needed for anxiety. Active butalbital-aceta minophen-caff (FIORICET, ESGIC) 50-325-40 mg per tablet 9 Active fexofenadine (GRIFFIN) 60 mg tablet Take by mouth daily. Active celecoxib (CeleBREX) 200 mg capsule 0 Active furosemide (LASIX) 20 mg tablet Take 1 tablet (20 mg total) by mouth as needed. Active cyclobenzaprine 10 mg tablet (FLEXERIL) Active Ozempic 0.25 mg or 0.5 mg (2 mg/1.5 mL) subcutaneous pen injector 0.5 mg by abdominal subcutaneous route 2 (two) times a day. 3 Active Active Problems Problem Noted Date Diagnosed Date Morbid obesity 05/15/2022 Mitral valve disorder 05/15/2022 Overview (05/15/2022): 1. According to the patient, she had a 2 echocardiograms done outside the hospital. First 1 was told mitral valve is abnormal recommended CT surgery evaluation. CT surgery evaluation came back quite benign and repeated another echocardiogram was told normal. Patient also gives history of mixup of studies done in that facility and became unreliable. SOB (shortness of breath) 05/15/2022 Family History Medical History Relation Name Comments Other Cancer Brother 1 Other Cancer Brother 2 Alcohol abuse Father Heart disease Father Aneurysm Mother Heart disease Mother Osteoporosis Sister Relation Name Status Comments Brother 1 (Age 50) Brother 2 (Age 63) Father (Age 44) Mother (Age 61) Sister Social History Tobacco Use Types Packs/Day Years Used Date Smoking Tobacco: Former Cigarettes 0.3 15 0 09/22/1995 - 09/21/2010 Smokeless Tobacco: Never Alcohol Use Standard Drinks/Week Comments Not Currently 2 (1 standard drink = 0.6 oz pur e alcohol) Socially [facility] Historical Interpersonal Safety Answer Date Recorded Does anyone neglect, hurt, or threaten the patie nt? No 01/09/2024 Comments No Sex and Gender Information Value Date Recorded Sex Assigned at Not on file Legal Sex Female 11:01 PM CDT Gender Identity Not on file Sexual Orientation Not on file Last Filed Vital Signs Vital Sign Reading Time Taken Comments Blood Pressure 118/72 05/15/2022 1:27 PM CDT Pulse 63 05/15/2022 1:27 PM CDT Temperature 36.6 C (97.9 F) 03/04/2019 5:57 PM GARNISHMENT SPECIALIST Respiratory Rate 18 03/04/2019 5:57 PM GARNISHMENT SPECIALIST Oxygen Saturation 95% 05/15/2022 1:27 PM CDT Inhaled Oxygen Concentration - - Weight 98.9 kg (218 lb) 01/09/2024 9:15 AM GARNISHMENT SPECIALIST Height 152.4 cm (5') 01/09/2024 9:15 AM GARNISHMENT SPECIALIST Body Mass Index 42.58 01/09/2024 9:15 AM GARNISHMENT SPECIALIST Plan of Treatment Upcoming Encounters Date Type Department Care Team (Late st Contact Info) Description 09/09/2024 2:20 PM CDT Office Visit [address] [place] [address] Wes Rea MD [address] [place], [place] [address] [id number] Health Maintenance Due Date Last Done Comments HIV Screening 1960 Lipid Panel 1960 Hematocrit Level 10/21/1959 Obesity Intervention 1976 Hepatitis C Screening 1977 Pap Smear 10/21/1979 Cervical Cancer Screening 1988 Pap + HPV 1988 Breast Cancer Screening: Bilateral 1998 CT Colonography 10/21/2003 Cologuard (FIT-DNA) 10/21/2003 Colonoscopy 10/21/2003 Colorectal Cancer Screening 10/21/2003 Fecal Immunochemical Test (FIT) 10/21/2003 Sigmoidoscopy 10/21/2003 Zoster Vaccine (1 of 2) 2008 RSV Vaccines (1 - Risk 60-74 years 1-dose series) 2018 Annual Preventive Visit 10/21/2023 Osteoporosis Screening 10/21/2023 COVID-19 Vaccine (2023- season) 2023 12/07/2022, 01/03/2022, 05/31/2021, Additional history exists Influenza Vaccine (#1) 2024 , 10/25/2022, 12/20/2021, Additional history exists DTaP,Tdap,and Td Vaccines (2 - Td or Tdap) 09/05/2032 09/05/2022 Pneumococcal Vaccine: 50+ Years Completed 12/25/2023, 11/25/2019 HIB Vaccines Aged Out No longer eligi ble based on patient's age to complete this topic Hepatitis B Vaccines Aged Out No long er eligible based on patient's age to complete this topic Meningococcal ACWY Vaccine Aged Out N o longer eligible based on patient's age to complete this topic Meningococcal B Vaccine Aged Out No l onger eligible based on patient's age to complete this topic Insurance [facility] MEDIC[facility] Care Teams Extrusion Former Relationship Specialty Start Date End Date Fede Cyr MD PCP - General Family Medicine 09/10/22
--- OUTSIDE RECORDS SUMMARY | 2024-09-05 15:49 | XMS_ITS | Patient Health Record ---
Author Organization [facility] Address [address] [place] [address] Care Team Providers Care Parking Lot Attendant And Cashier Name Role Phone SchmidtWes gorman Primary Care Provider [phone] [address] [place] Unavailable [phone] BarajasOmayra winchester Unavailable [phone] Allergies Allergen (clinical drug ingredient) Drug/Non Drug Allergy documented on EMR Reaction Allergy Type Onset Date Status sulfamethoxazole / trimethoprim Bactrim Unknown Drug Allergy 08/22/2020 Active hydromorphone Dilaudid Unknown Drug Allergy Act tanya tetracycline Tetracycline HCl Unknown Drug Allergy Active doxycycline Doxycycline Unknown Drug Allergy Act tanya tramadol Tramadol Unknown Drug Allergy Active Results Component Value Reference Range Notes CBC With Platelet And Differ ential (CBCWD) Reviewed date:04/14/2024 10:48:39 AM Interpretation: Performing Lab: Notes/Report: Test performed by [facility], [address] , [address], [place] [address] Dennis Alves MD, Credit Officer CLIA: [id number] WBC 6.7 3.8-11.5 K/uL Red Blood Cell Count (RBC) 4.60 3.60-5.30 M/mm 3 Hemoglobin (Hgb) 13.3 11.5-15.5 gm/dL Hematocrit (HCT) 41.8 35.2-46.4 % MCV 90.9 79.0-99.0 fL MCH 28.9 26.9-35.0 pg MCHC 31.8 30.4-34.8 g/dL RDW 41.5 38.6-53.8 fL Platelet Count 329 137-397 K/cumm Neutrophils Automated 55.2 41.0-77.0 % Lymphocytes Automated 31.3 14.0-48.0 % Monocytes Automated 7.3 4.0-13.0 % Eosinophils Automated 4.9 0.0-8.0 % Basophils Automated 1.0 0.0-1.5 % Immature Granulocyte Automated 0.3 0.0-1.0 % Comprehensive Metabolic Pane l (CMP) Reviewed date:04/14/2024 10:48:39 AM Interpretation: Performing Lab: Notes/Report: Test performed by [facility] [address] [place] [address] , [address], [place] [address] Dennis Alves MD, Credit Officer CLIA: [id number] Sodium 144 135-145 mmol/L Potassium 4.4 3.5-5.3 mmol/L Chloride 108 97-108 mmol/L CO2 26 22-32 mmol/L Glucose 85 65-99 mg/dL BUN 13 8-23 mg/dL Creatinine 0.70 0.50-1.00 mg/dL Calcium 9.7 8.6-10.4 mg/dL eGFR by Creatinine 96 >59 mL/min/1.73m2 Protein 6.4 6.0-8.3 g/dL Albumin 4.1 3.5-5.3 g/dL Alkaline Phosphatase 67 35-121 IU/L ALT (SGPT) 11 <5-47 IU/L AST (SGOT) 15 <5-40 IU/L Bilirubin, Total 0.3 <0.2-1.2 mg/dL A/G Ratio 1.8 1.1-2.5 Hemoglobin A1C (HA1C) Reviewed date:04/14/2024 10:48:39 AM Interpretation: Performing Lab: Notes/Report: Test performed by [facility] [address] [place] [address] , [address], [place] [address] Dennis Alves MD, Credit Officer CLIA: [id number] Hemoglobin A1C 5.3 <5.7 % The following HbA1c ranges recommended by the [place] [employer] (ADA) may be used as an aid in the diagnosis of diabetes mellitus. HbA1c Suggested Diagnosis >=6.5% Diabetic 5.7% - 6.4% Pre-Diabetic <5.7% Non-Diabetic Lipid Panel (LIPID) Reviewed date:04/14/2024 10:48:39 AM Interpretation: Performing Lab: Notes/Report: FASTING Test performed by [facility], [address] [place] , [place] [address] Dennis Alves MD, Credit Officer CLIA: [id number] Cholesterol 180 <200 mg/dL Triglycerides 69 <150 mg/dL HDL Cholesterol 65 >39 mg/dL Cholesterol / HDL Ratio 2.77 0.00-4.44 Ratio Non-HDL Cholesterol 115 <130 mg/dL LDL Cholesterol (Calculation) 101 <130 mg/dL LDL Cholesterol Levels* Less than 100 mg/dL Optimal 100 to 129 mg/dL Near Optimal/ Above Optimal 130 to 159 mg/dL Borderline High 160 to 189 mg/dL High 190 mg/dL and above Very High * Categories as recommended by the 2004 ATPIII guidelines LDL/HDL Ratio 1.6 <3.3 Ratio LDL Cholesterol Patient History Test Date: 01/21/2023 LDL Results: 83 Units: mg/dL % Change: -8% Test Date: 08/17/2023 LDL Results: 86 Units: mg/dL % Change: +3% Test Date: 04/05/2024 LDL Results: 101 Units: mg/dL % Change: +17% Estimated Average Glucose (G LUAV) Reviewed date:04/14/2024 10:48:39 AM Interpretation: Performing Lab: Notes/Report: Test performed by [facility] [address] [place] [address] , [address], [place] [address] Dennis Alves MD, Credit Officer CLIA: [id number] Estimated Average Glucose (eAG) 105 Estimated Average Glucose (eAG) is calculated using the equation eAG = (28.7 x HbA1c) - 46.7 based on the guidelines established by the ADA. If the patient has certain diseases including kidney disease, sickle cell anemia, thalassemia, or is taking medications such as dapsone, erythropoietin, or iron, eAG should not be evaluated. Mammo Screen Bilat Reviewed date:05/18/2024 11:38:46 AM Interpretation: Performing Lab: Notes/Report: Original Report CDI Clay Final Report Patient: Sarah Carpio [facility] Rec #: [id number] : 1960 Age: 63Y Pt Type: Ordering Clinician: Study UID: Exam: Mammo Dig Screen Brandin W CAD 3D B Date of Exam: 05/10/2024 IMPRESSION: 1. No mammographic evidence for malignancy. Breast Density Category B: There are scattered areas of fibroglandular density. BI-RADS Category (2): Benign findings. Recommendation: Annual screening mammography is suggested HISTORY: Routine screening. Comparison Study: 01/21/2023, 12/13/2021 Technique: Digital 3D breast tomosynthesis and standard 2D MLO and CC digital mammographic imaging was performed of both breasts. Computer assisted diagnostic software was utilized to facilitate interpretation. Findings: The breast density is composed of scattered fibroglandular tissue. There is no suspicious mass, malignant-type microcalcification, or unexplained architectural distortion within either breast. Technologist: Priyank Walsh Asbestos Removal Supervisor: Pam Lozada Dictated Date: May 12 2024 Transcribe Date/Time: May 12 2024 2:53PM Read By: LINDA LOZADA M.D. Signed by: LINDA LOZADA M.D. [id number] Read by: Linda Lozada M.D. Reviewed and Electronically Signed by: Linda Lozada M.D. Reason For Referral Reason Gastro-colonscopy Referral Organization [address] Medicine Referring Provider First Name Wes Referring Provider Last Name Roxana Referring Provider Speciality Nurse Prac titioner Referred Provider Cristiano Guo Referred Provider Specialty Gastroentero logy General Notes Niall Adame ([facility]) 0 03/15/2024 04:40:43 PM >faxed referral and records Referral Priority Routine Medications Medication SIG (Take, Route, Frequency, Duration) Notes Start Date End Date Status Gemtesa 75 MG 1 tablet Orally Once a day for 30 days samples 06/25/2023 Active Cyclobenzaprine HCl 10 MG 1 tablet as ne eded Orally three times a day for 90 days 11/16/2020 Active CeleBREX 200 MG 1 capsule with food Orally twice a day for 90 days 04/01/2019 Active LORazepam 0.5 mg 1 tab Orally twice a day, PRN anxiety for 30 days 09/23/2023 Active Promethazine HCl 25 MG 1 tablet as neede d Orally every 6 hrs for 30 day(s) 01/17/2022 Active methylPREDNISolone 4 MG as directed Oral ly as directed for 6 days 04/15/2024 Active Ziedjxyoug-ITPY-Xshbenjp 50-325-40 MG 1 tablet as needed for migraine Orally every 6 hours for 30 days Medical Necessity; DX G43.909 12/10/2023 Active Amoxicillin-Pot Clavulanate 875-125 MG 1 tablet Orally every 12 hrs for 10 days 04/15/2024 Active Fluticasone Propionate 50 MCG/ACT 2 sprays each nostril Nasally Once a day for 30 days 01/30/2023 Active Furosemide 20 MG TAKE 1 TABLET BY MOUTH EVERY DAY FOR 90 DAYS for 90 Active Meclizine HCl 25 MG 1 tablet as needed for dizziness Orally every 12 hrs for 10 days 04/15/2024 Active Escitalopram Oxalate 5 MG 1 tablet Orall y Once a day for 90 days 12/30/2022 Active Ozempic (1 MG/DOSE) 4 MG/3ML 1 mg Subcutaneous once a week for 90 days 09/23/2023 Active Phentermine HCl 37.5 MG 1 tablet before breakfast Orally Once a day for 30 days 06/25/2023 Active Microlet Lancets - check BS once a day prn for 30 days Active Contour Next Test - check BS In Vitro once a day prn for 30 days Active Immunizations Vaccine Route Administration Date Status Comme nts Pneumococcal (Pneumovax 23/without benefits counselor) ID Intradermal 11/25/2019 Administered Tdap (Adacel/without benefits counselor) IM Intramuscular 09/05/2022 Administered Fluzone quad, pres free Unknown 10/25/2022 Administered Prevnar 20 Unknown 12/25/2023 Administered Problems Problem Type SNOMED Code ICD Code Onset Dates Problem Status W/U Status Risk Notes Problem Chronic frontal sinusitis (82050508) Chronic frontal sinusitis (J32.1) Active confirmed Problem 512644240 Ingrowing nail (L60.0) Active confirmed Problem 187759940 Corns and callosities (L84) Active confirmed Problem Osteoarthritis of knee (436530795) Bilateral primary osteoarthritis of knee (M17.0) Active confirmed Problem Pain of right knee region (finding) (704901719079673) Pain in right knee (M25.561) Active confirmed Problem Pain of left knee joint (finding) (322682795488738) Pain in left knee (M25.562) Active confirmed Problem Cervicalgia (76331687) Cervicalgia (M54.2) Active confirmed Problem 43797674101808982 Pain in right foot (M79.671) Active confirmed Problem 431889994035120 Pain in left foot (M79.672) Active confirmed Problem Overactive bladder (182312549) Overactive bladder (N32.81) Active confirmed Problem 34933608 Anxiety (F41.9) Active confirmed Problem Morbid obesity (294145957) Morbid obesity (E66.01) Active confirmed Problem Migraine without aura, not refractory (784361961) Migraine without aura and responsive to treatment (G43.009) Active confirmed Problem Hyperglycemia due to type 2 diabetes mellitus (560850472436597) Type 2 diabetes mellitus with hyperglycemia, unspecified whether exterminator insulin use (E11.65) Active confirmed Problem Generalized anxiety disorder (76884562) CELY (generalized anxiety disorder) (F41.1) Active confirmed Problem 022433147 Hallux valgus of left foot (M20.12) Active confirmed Problem Hallux valgus of right foot (8953725843) Hallux valgus of right foot (M20.11) Active confirmed Problem New daily persistent headache (716780423262342) New daily persistent headache (G44.52) Active confirmed Problem Difficulty walking (339507856) Difficulty walking (R26.2) Active confirmed Problem 472779223 Hammertoe of second toe of left foot (M20.42) Active confirmed Problem 251882045730428 Pain of left foot (M79.672) Active confirmed Problem Chronic pain (89779223) Chronic pain (G89.29) Active confirmed Problem 158307256800539 Acquired hallux valgus of right foot (M20.11) Active confirmed Problem Body mass index 40+ - severely obese (236524304) Adult BMI 40.0-44.9 kg/sq m (Z68.41) Active confirmed Problem Recurrent major depression (47869234) Major depressive disorder, recurrent episode (F33.9) Active confirmed Problem 35360380 Metatarsus abductus (Q66.6) Active confirmed right foot Vital Signs Temperature 97.9 degrees Fahrenheit 04/15/2024 Blood pressure diastolic 73 mm Hg 04/15/2024 Height-cm 152.4 cm 04/15/2024 Weight-kg 98.43 kg 04/15/2024 Height 60 in 04/15/2024 Blood pressure systolic 127 mm Hg 04/15/2024 Weight 217 lbs 04/15/2024 BMI 42.38 kg/m2 04/15/2024 Encounters Encounter Location Date Provider Diagnosis [place] [address] [place] [address] 09/23/2023 [facility] Encounter for genera l adult medical examination with abnormal findings Z00.01 ; Type 2 diabetes mellitus with hyperglycemia, unspecified whether [facility] insulin use E11.65 ; CELY (generalized anxiety disorder) F41.1 ; Migraine without aura and responsive to treatment G43.009 and Oral pain of unknown etiology K13.[address] [place] [address] 04/15/2024 [facility] Type 2 diabetes mellitus with hyperglycemia, unspecified whether exterminator insulin use E11.65 ; Major depressive disorder, recurrent episode F33.9 ; CELY (generalized anxiety disorder) F41.1 ; Migraine without aura and responsive to treatment G43.009 ; Overactive bladder N32.81 ; Adult BMI 40.0-44.9 kg/sq m Z68.41 and Acute sinusitis J01.[address] [place] [address] 06/01/[address] [place] [address] 03/15/2024 [facility] Adult BMI 40.0-44.9 kg/sq m Z68.41 ; Fatigue R53.83 and Type 2 diabetes mellitus with hyperglycemia, unspecified whether [facility] insulin use E11.[address] [place] [address] 02/26/2024 Omayra Barajas [address] [place] [address] 01/04/2024 [facility] Type 2 diabetes mellitus with hyperglycemia, unspecified whether exterminator insulin use E11.[address] [place] [address] 12/29/[address] [place] [address] 12/10/[address] [place] [address] 10/16/[address] [facility] [place] [address] 08/09/2024 [facility] Osteoporosis screeni ng Z13.820 Assessments Encounter Date Diagnosis (ICD Code) Assessment Notes Treatment Notes Treatment Clinical Notes Section Notes 09/23/2023 Encounter for general adult medical examination with abnormal findings (ICD-10 - Z00.01) 01/04/2024 Type 2 diabetes mellitus with hyperglycemia, unspecified whether [facility] insulin use (ICD-10 - E11.65) 03/15/2024 Adult BMI 40.0-44.9 kg/sq m (ICD-10 - Z68.41) 04/15/2024 Type 2 diabetes mellitus with hyperglycemia, unspecified whether exterminator insulin use (ICD-10 - E11.65) 04/15/2024 Major depressive disorder, recurrent episode (ICD-10 - F33.9) 08/09/2024 Osteoporosis screening (ICD-10 - Z13.820) 04/15/2024 CELY (generalized anxiety disorder) (ICD-10 - F41.1) 03/15/2024 Fatigue (ICD-10 - R53.83) 09/23/2023 Type 2 diabetes mellitus with hyperglycemia, unspecified whether exterminator insulin use (ICD-10 - E11.65) 09/23/2023 CELY (generalized anxiety disorder) (ICD-10 - F41.1) 09/23/2023 Migraine without aura and responsive to treatment (ICD-10 - G43.009) 03/15/2024 Type 2 diabetes mellitus with hyperglycemia, unspecified whether [facility] insulin use (ICD-10 - E11.65) 04/15/2024 Migraine without aura and responsive to treatment (ICD-10 - G43.009) 04/15/2024 Overactive bladder (ICD-10 - N32.81) 09/23/2023 Oral pain of unknown etiology (ICD-10 - K13.79) 04/15/2024 Adult BMI 40.0-44.9 kg/sq m (ICD-10 - Z68.41) 04/15/2024 Acute sinusitis (ICD-10 - J01.90) Plan Of Treatment Pending Test Test Name Order Date CBC With Platelet And Differential (CBCW D) 08/11/2022 Comprehensive Metabolic Panel (CMP) 07/31 Hemoglobin A1C (HA1C) 08/11/2022 Lipid Panel (LIPID) 08/11/2022 Protein/Creatinine Ratio, Random Urine S ample (UPCRT) 09/23/2023 CBC With Platelet And Differential 08/12 CBC With Platelet And Differential 10/25 Comprehensive Metabolic Panel (CMP) 10/01 Comprehensive Metabolic Panel (CMP) 07/31 Hemoglobin A1C 08/12/2021 Hemoglobin A1C 10/25/2021 Lipid Panel 10/25/2021 Lipid Panel 08/12/2021 TSH reflex to FT4 08/12/2021 TSH reflex to FT4 10/25/2021 DXA Bone Densitometry, Axial Skeleton Insurance Providers Payer Name Payer Address Payer Phone Subscriber Number Group Number Insured Name Patient Relationship to Insured Coverage Start Date Coverage End Date [facility] [address] [place] [address] [id number] Sarah Carpio Self - patient is the insured Medications Administered Medication Instructions Date of Administration Dosage Notes Dexamethasone Sodium Phosphate 07/06/2020 8 mg Dexamethasone Sodium Phosphate 11/16/2020 8 mg Dexamethasone Sodium Phosphate 12/13/2021 4 mg Vitamin B12, 1000 mcg 11/25/2019 1000 ug Vitamin B12 06/04/2022 1000 ug Vitamin B12 09/05/2022 1000 ug Ceftriaxone injection per 1 gram 07/06/2020 1 Ceftriaxone injection per 1 gram 12/13/2021 100 0 mg Depo Medrol 80 mg 07/06/2020 80 mg Depo Medrol 80 mg 11/16/2020 80 mg Triamcinolone Acetonide 1ml (40mg) (w/o admin) 12/13/2021 1 mL Medical (General) History Medical History History ICD Code back pain depression scoliosis b/l knee arthritis - needing b/l knee re placements but anti surgery migraines (fioricet helps) Arthritis Surgical History Surgery Date(Month/Year) D&C bunionectomy Laparoscopy LEEP gallbladder Hospitalization History Reason Date(Month/Year) PNA
--- OUTSIDE RECORDS SUMMARY | 2024-09-05 15:50 | XMS_ITS | Patient Health Record ---
Author Organization [facility] Billing Info Address [address] [place] [address] [place] [address] Care Team Providers Care Payroll Accounting Clerk Name Role Phone PEACE LOGAN Primary Care Provider ANDRZEJ King Unavailable [phone] Allergies Allergen (clinical drug ingredient) Drug/Non Drug Allergy documented on EMR Reaction Allergy Type Onset Date Status Information temporarily unavailable Anesthesia nausea/vomiting Drug Allergy Active Information temporarily unavailable Dilaudid Unknown Drug Allergy Active Information temporarily unavailable Tetracycline HCl Unknown Drug Allergy Active Reason For Referral Reason Colon CA screening bcbs net p, no card Referring Provider First Name PEACE Referring Provider Last Name DOREEN Referring Provider Speciality Nurse Prac titioner Referred Organization [id number] [facility] Referred Provider ANDRZEJ JAMA Referred Address [address] [facility], [place],[address], Referred Provider Specialty Gastroentero logy General Notes JOSH RODAS 08:45:48 AM >Notes LILY napoles RYLEE 05/04/2024 02:26:42 PM > see note. pt already scheduled 06/16/2024 Referral Priority Routine Medications Medication SIG (Take, Route, Fr equency, Duration) Notes Start Date End Date Status Anacin Active Ibuprofen 200 MG 1 tablet as needed O rally every 6 hrs Active Arthrotec 50-200 MG-MCG 1 tablet Orally prn for 30 day(s) Active Problems No Known Problems Encounters Encounter Location Date Provider Diagnosis [id number] [facility] [address] [place] [address] 04/27/2024 ANDRZEJ JAMA Plan Of Treatment No Information Insurance Providers Payer Name Payer Address Payer Phone Subscriber Number Group Number Insured Name Patient Relationship to Insured Coverage Start Date Coverage End Date [employer] NETWORK [address] [facility] [address] [place], [place] [id number] [phone] [id number] Sarah Carpio Self - patient is the insured 3 Medical (General) History Medical History History ICD Code acid reflux depression anxiety arthritis scoliosis obesity Surgical History Surgery Date(Month/Year) gall bladder surgery tubal ligation D&C C section laparoscopy Hospitalization History Reason Date(Month/Year) pneumonia
--- OUTSIDE RECORDS SUMMARY | 2024-09-05 15:50 | XMS_ITS ---
Author Organization [facility] [place], [facility] Address [address] [place] [address] Care Team Providers Care Fire Chief Deputy Name Role Phone Referred by, [employer] Search Unavailable Unava ilable Clinton Nevarez Unavailable REASON FOR VISIT RT FT BUNION/DISCUSS POSSIBLE SX/2ND OPINION Encounters Encounter Location Date Provider Diagnosis [facility] [place], [facility] [address] [place], [place] [id number] 07/06/2023 Clinton Nevarez Plan Of Treatment No Information Progress Notes * LEW GRIFFINYAIRB:1960 (63 yo F)Acc No.[id number]:07/06/2023 Progress Notes Patient: PHILLIP PIERCE Provider: Jeet Lizama DPM :1960 A ge:62 Y S ex:Female Date:07/06/2023 Address:[address] [place], [place] [id number] Subjective: * Chief Complaints: * 1 . RT FT BUNION/DISCUSS POSSIBLE SX/2ND OPINION. * Active Problem List ?Problem List has not been verified* Medical History: Objective: * Vitals: Assessment: Plan: * Treatment: * Images: * Electronic signature of Katie Nevarez DPM on 09/05/2024 at 03:49 PM CDT Sign off status: Pending * Provider: Jeet Lizama DPM Date: 07/06/2023 Generated for Printi ng/Adriana/Shahabitting on: 0 09/05/2024 03:49 PM CDT
[2024-09-05 15:54] VITALS: BP 127/75; PULSE 66; RESP 18; TEMP 36.7; O2SAT 98
--- NOTE | 2024-09-05 16:14 | ED_ITS ---
HPI - General Adult General Chief complaint: Extremity Injury, Lower Stated complaint: Fall / RT Leg Pain History of Present Illness HPI narrative: Sarah Carpio is a 63-year-old who presents with continued left lower extremity pain after a mechanical ground level fall 2 weeks and 3 days ago. She states that she was playing [employer] and somehow fell over the corn hold board on to her buttocks and her legs grabbed the [employer] board hitting the lateral posterior aspect of her legs on the board with her left leg getting most of the injury. Related Data Home Medications ?Medication ?Instructions ?Recorded ?Confirmed ?Last Taken ?Type celecoxib 200 mg capsule mg 09/05/24 Unknown History furosemide 20 mg tablet mg 09/05/24 Unknown History lorazepam 0.5 mg tablet mg 09/05/24 Unknown History semaglutide 1 mg/dose (4 mg/3 mL) mg subcut 09/05/24 Unknown History subcutaneous pen injector (Ozempic) Allergies Allergy/AdvReac Type Severity Reaction Status Date / Time doxycycline Allergy Rash Verified 09/05/24 16:09 hydromorphone (From Dilaudid) Allergy Dyspnea / Verified 09/05/24 16:09 SOB tetracycline Allergy Rash Verified 09/05/24 16:09 Sulfa (Sulfonamide AdvReac Nausea Verified 09/05/24 16:09 Antibiotics) tramadol (From Ultram) AdvReac Nausea Verified 09/05/24 16:09 Review of Systems Review of Systems: All systems reviewed & are unremarkable except as noted in HPI and below Exam Narrative: GENERAL: Well-appearing, well-nourished, and in no acute distress. HEAD: Normocephalic, atraumatic. EYES: PERRLA and EOMI. ENT: Nares clear, no rhinorrhea or epistaxis. Mucous membranes moist. Oropharynx without tonsillar hypertrophy exudate or other lesions. NECK: Supple. No adenopathy or masses. No carotid bruits or JVD CHEST: Clear to auscultation. No respiratory distress. No wheezes rales or rhonchi HEART: Regular rate and rhythm. No murmur heard. Normal peripheral pulses. ABDOMEN: Soft, nontender, nondistended, normal active bowel sounds. EXTREMITIES: Normal range of motion. Left lower extremity + erythema/ swelling to lateral left leg, moderate left ankle swelling, extending to top of left foot, strong pedal pulses , neurovascular intact SKIN: Warm, dry, no rash. NEURO: No focal deficits. Alert and oriented x3. PSYCH: Normal mood and affect. Course Course Level of Care: Express Care Visit Vital Signs Vital signs: Vital Signs Temperature 36.7 C 09/05/24 15:54 Pulse Rate 66 09/05/24 15:54 Respiratory Rate 18 09/05/24 15:54 Blood Pressure 127/75 09/05/24 15:54 Pulse Oximetry 98 09/05/24 15:54 Oxygen Delivery Room Air 09/05/24 15:54 Temperature 36.7 C 09/05/24 15:54 Pulse Rate 66 09/05/24 15:54 Respiratory Rate 18 09/05/24 15:54 Blood Pressure 127/75 09/05/24 15:54 Pulse Oximetry 98 09/05/24 15:54 Oxygen Delivery Room Air 09/05/24 15:54 Medical Decision Making MDM Narrative Medical decision making narrative: 63 y/o female with left lower extremity pain status post ground level mechanical fall over two weeks ago Left lower extremity + erythema/ swelling to lateral left leg, moderate left ankle swelling, extending to top of left foot, strong pedal pulses , neurovascular intact Concern for fracture/ contusion/ Plan to check an xr of tib, fib, ankle and foot XR: No acute osseous finding in the left tibia/fibula or left ankle. Significant degenerative disease, without acute fracture to the left foot Patient states that she has an appointment with her orthopedic surgeon this Thursday where she is from in [place]. She states that she does want to get the x-ray done here to find out again. Based on the swelling and the pain that she is having offered a walking boot order, however she states that she cannot use those. also offered an Vish wrap or see if she wants that in the meantime encouraged patient to continue to elevate, rest and ice areas of pain follow-up with orthopedic surgeon as scheduled she develops any acute worsening symptoms proceed to the emergency department. Medical Records Medical records reviewed: Yes I reviewed the external patient's medical records. Vital Signs Vital Signs: Vital Signs Temperature 36.7 C 09/05/24 15:54 Pulse Rate 66 09/05/24 15:54 Respiratory Rate 18 09/05/24 15:54 Blood Pressure 127/75 09/05/24 15:54 Pulse Oximetry 98 09/05/24 15:54 Oxygen Delivery Room Air 09/05/24 15:54 Temperature 36.7 C 09/05/24 15:54 Pulse Rate 66 09/05/24 15:54 Respiratory Rate 18 09/05/24 15:54 Blood Pressure 127/75 09/05/24 15:54 Pulse Oximetry 98 09/05/24 15:54 Oxygen Delivery Room Air 09/05/24 15:54 Vitals reviewed by me Imaging Data Radiologist's impression: Impressions Ankle X-Ray 09/05/24 16:44 IMPRESSION: No acute osseous finding in the left tibia/fibula or left ankle. Foot X-Ray 09/05/24 16:44 IMPRESSION: Significant degenerative disease, without acute fracture. Tibia/Fibula X-Ray 09/05/24 16:44 IMPRESSION: No acute osseous finding in the left tibia/fibula or left ankle. Discharge Plan Discharge Clinical Impression: Ankle sprain and strain, Contusion of left leg Patient Disposition: Home Condition: Stable Instructions: Antibiotic Form, P.R.I.C.E. Treatment (ED) Additional Instructions: Wear the vish wrap Elevate your leg while at rest Ice areas of pain Follow up with your orthopedic surgeon as scheduled If you develop any worsening symptoms or concerns proceed to the ER. Patient Language: Hebrew Prescriptions: No Action celecoxib 200 mg capsule lorazepam 0.5 mg tablet furosemide 20 mg tablet Ozempic 1 mg/dose (4 mg/3 mL) pen injector SUBCUT Follow-up/Referrals: PHYSICIAN,RECLAMATION KETTLE TENDER [Primary Care Provider] - Time of Disposition: 17:00
== END 2024-09-05 17:27 | disposition home or self-care (01) ==
PROVIDERS: Emergency Provider Nurse Practitioner Family
DX: S93.402A Sprain of unspecified ligament of left ankle, initial encounter (principal); S96.912A Strain of unspecified muscle and tendon at ankle and foot level, left foot, initial encounter; S80.12XA Contusion of left lower leg, initial encounter; W01.198A Fall on same level from slipping, tripping and stumbling with subsequent striking against other object, initial encounter
CPT/HCPCS: 73590; 73610; 73630; 99204; G0463